=== PATIENT | male | born 1940 | race Two or more races ===

== ENCOUNTER 2019-11-15 11:24 | Inpatient (IN) | payer OTHER ==
[~2019-11-15] VITALS: Ht 175.3 cm; Wt 68.0 kg
[2019-11-26] MEDS ORDERED: COZAAR100 MG PO (11:09)
[2019-11-26] MEDS ORDERED: PROCARDIA PO (11:10)
[2019-11-26] MEDS ORDERED: CATAPRES0.3 MG PO (11:10)
[2019-11-26] MEDS ORDERED: LIPITOR40 MG PO (11:11)
[2019-11-26] MEDS ORDERED: HUM (11:24)
[2019-11-26] MEDS ORDERED: LANTUS (11:25)
[2019-12-05] MEDS ORDERED: PRILOSEC OTC20 MG PO (18:28)
[2019-12-05] MEDS ORDERED: PERCOCET 5-3251 EACH PO (18:28)
== END 2019-12-05 18:42 | disposition home or self-care (01) | DRG 331 ==
LOC: O/R 11-30 08:00 → SURH 11-30 09:15
PROVIDERS: ADMIT Surgery; ATTEND Surgery
PROC: 0DTN4ZZ Resection of Sigmoid Colon, Percutaneous Endoscopic Approach (ICD-10-PCS; principal; 2019-11-30 09:15)
DX: K57.32 Diverticulitis of large intestine without perforation or abscess without bleeding (principal); I10 Essential (primary) hypertension; N40.0 Benign prostatic hyperplasia without lower urinary tract symptoms; E13.9 Other specified diabetes mellitus without complications; Z79.4 Long term (current) use of insulin

== ENCOUNTER 2020-02-21 10:21 | Inpatient (IN) | payer OTHER ==
[~2020-02-21] VITALS: Ht 170.2 cm; Wt 76.2 kg
[~2020-02-21 10:21] MED LIST: CATAPRES0.3 MG PO; COZAAR100 MG PO; HUM; LANTUS; LIPITOR40 MG PO; PERCOCET 5-3251 EACH PO; PRILOSEC OTC20 MG PO; PROCARDIA PO
--- NOTE | 2020-02-21 10:26 | NUR ---
PTE REFIERE DOLOR DE PECHO DESDE CHARMAINE SE NATE S/V Y SE REALIZA EKG EL CUAL; SE PRESENTA A DR CHIN Y CLAUDIA REFIERE PACIENTE SERA EVALUADO EN AREA [facility]
--- NOTE | 2020-02-21 11:24 | NUR ---
SE RECIBE PTE MACULINO CON DOLOR DE PECHO. ES EVALUADO POR GIUSEPPE KELLEY DR QUIEN ORDENA TRATAMIENTO LA CUAL SE EJEUCTA POR RN. SE ACOMPAD EN HAVEN CON BARADNAS ELEVADA Y SE LE REALIZA EKG.SE LE REALIZA RX PORTABLE Y SE LE COMIENZA EN MEDICAMENTOS . SE MANTIENE BA LISA OBSERVACION0.
--- NOTE | 2020-02-21 15:37 | NUR ---
SE RECIBE PACIENTE EN HAVEN CON MEDIDAS DE SEGURIDAD, LUCE ALERTA,CONSCIENTE Y ORIENTADO X3. MARY DE DOLOR AL MOMENTO. BUEN PATRON RESPIRATORIO. MANTIENE MONITOR CARDIACO Y OXIMETRIA DE PULSO, RITMO SINUSAL. MANTIENE TRIDIL 50MG @ 3MLHR. EN ESPERA DE RESULTADOS DE JANEL SET DE TROPONINAS Y SER VISTO EN CONSULTA POR MEDICINA INTERNA.
== END 2020-02-25 14:58 | disposition designated cancer center or children's hospital (05) | DRG 303 ==
LOC: ER 10:21 → MEDI 19:41 → SEC-K 02-22 11:58 → MEDJ 02-23 01:28 → SURH 02-23 01:31
PROVIDERS: ADMIT Internal Medicine; ATTEND Internal Medicine
PROC: 4A12X4Z Monitoring of Cardiac Electrical Activity, External Approach (ICD-10-PCS; principal; 2020-02-21)
PROC: 3E0F7SF Introduction of Other Gas into Respiratory Tract, Via Natural or Artificial Opening (ICD-10-PCS; 2020-02-21)
PROC: B24BZZZ Ultrasonography of Heart with Aorta (ICD-10-PCS; 2020-02-22)
DX: I25.10 Atherosclerotic heart disease of native coronary artery without angina pectoris (principal); I24.9 Acute ischemic heart disease, unspecified; I10 Essential (primary) hypertension; Z95.5 Presence of coronary angioplasty implant and graft; E11.65 Type 2 diabetes mellitus with hyperglycemia; Z79.4 Long term (current) use of insulin; Z20.828 Contact with and (suspected) exposure to other viral communicable diseases